=== PATIENT | female | born 1985 | race Caucasian/White ===

== ENCOUNTER → 2025-06-03 09:04 | Outpatient (REF) | payer OTHER, SELFPAY | LOC: HWRCS 09:04 | PROVIDERS: ATTENDING PHYSICIAN Nurse Practitioner; FAMILY PHYSICIAN Family Medicine | DX: R60.0 Localized edema (principal) | CPT/HCPCS: 93306 ==

== ENCOUNTER → 2025-06-15 09:50 | Outpatient (REF) | payer OTHER, SELFPAY | LOC: RAD 09:50 | PROVIDERS: ATTENDING PHYSICIAN Nurse Practitioner; FAMILY PHYSICIAN Family Medicine | DX: I72.8 Aneurysm of other specified arteries (principal); Z82.49 Family history of ischemic heart disease and other diseases of the circulatory system | CPT/HCPCS: 71275; 74174; Q9967 ==